=== PATIENT | female | born 1985 | race Caucasian/White ===

== ENCOUNTER 2019-02-28 20:38 | Emergency (ER) | payer OTHER ==
[~2019-02-28] VITALS: Ht 160 cm; Wt 67.1 kg
[2019-02-28 20:59] VITALS: Ht 160 cm; Wt 67.1 kg
[2019-02-28 21:50] VITALS: BP 129/77
== END 2019-02-28 21:00 | disposition other institution (70) ==
LOC: ED 20:38
DX: Z02.89 Encounter for other administrative examinations (principal)